=== PATIENT | male | born 1945 | race Two or more races ===

== ENCOUNTER 2017-07-26 08:56 | Outpatient (CLI) | payer OTHER | END 2017-07-26 13:14 | disposition home or self-care (01) | LOC: MRI 08:56 | DX: M54.32 Sciatica, left side (principal) | CPT/HCPCS: 72148 ==

== ENCOUNTER 2017-09-17 10:42 | Outpatient (CLI) | payer OTHER | END 2017-09-17 10:49 | disposition home or self-care (01) | LOC: MRI 10:42 | DX: M75.102 Unspecified rotator cuff tear or rupture of left shoulder, not specified as traumatic (principal) | CPT/HCPCS: 73221 ==

== ENCOUNTER → 2018-03-30 | Outpatient (CLI) | payer OTHER | END | disposition home or self-care (01) | LOC: LAB 16:11 | DX: M51.16 Intervertebral disc disorders with radiculopathy, lumbar region (principal); Z51.81 Encounter for therapeutic drug level monitoring ==

== ENCOUNTER 2018-04-01 08:26 | Outpatient (CLI) | payer OTHER | END 2018-04-01 08:33 | disposition home or self-care (01) | LOC: MRI 08:26 | DX: M54.42 Lumbago with sciatica, left side (principal); M51.16 Intervertebral disc disorders with radiculopathy, lumbar region | CPT/HCPCS: 72149; A9579 ==

== ENCOUNTER 2018-06-14 09:01 | Outpatient (CLI) | payer OTHER | END 2018-06-14 09:48 | disposition home or self-care (01) | LOC: SONOGRAMA 09:01 | DX: R10.9 Unspecified abdominal pain (principal); K80.20 Calculus of gallbladder without cholecystitis without obstruction ==

== ENCOUNTER → 2018-06-17 | Outpatient (CLI) | payer OTHER | END | disposition home or self-care (01) | LOC: NUCLEAR 07:00 | DX: I25.10 Atherosclerotic heart disease of native coronary artery without angina pectoris (principal) | CPT/HCPCS: 78452; 93017; A9500 ==

== ENCOUNTER 2018-08-23 14:14 | Outpatient (CLI) | payer OTHER | END 2018-08-23 14:21 | disposition home or self-care (01) | LOC: SONOGRAMA 14:14 → SONO 607 14:15 → SONOGRAMA 14:21 | DX: N20.0 Calculus of kidney (principal) ==

== ENCOUNTER 2018-09-08 07:00 | Outpatient (CLI) | payer OTHER | END 2018-09-08 10:00 | disposition home or self-care (01) | LOC: MRI 07:00 | DX: D41.00 Neoplasm of uncertain behavior of unspecified kidney (principal) | CPT/HCPCS: 74183; A9575; 74182 ==